=== PATIENT | male | born 1980 | race African-American/Black ===

== ENCOUNTER 2020-06-21 08:58 | Day surgery (SDC) | payer BC ==
[2020-06-18 09:15] LABS: Basophils # (auto) 0.1 10 ^3/uL (0-0.2); Basophils % (auto) 0.6 % (0.0-2.0); Eosinophils # (auto) 0.1 10 ^3/uL (0-0.8); Eosinophils % (auto) 1.2 % (0.0-7.0); Hematocrit 47.1 % (41.0-53.0); Hemoglobin 15.8 g/dL (13.5-17.5); Lymphocytes # (auto) 2.4 10 ^3/uL (0.4-5.4); Lymphocytes % (auto) 20.1 % (10.0-50.0); Mean Corpuscular Hemoglobin 30.1 pg (28.0-32.0); Mean Corpuscular Hgb Conc. 33.5 g/dL (32.0-36.0); Mean Corpuscular Volume 89.7 fL (80.0-100.0); Monocytes # (auto) 0.5 10 ^3/uL (0-1.3); Monocytes % (auto) 3.9 % (0.0-12.0); Neutrophils % (auto) 74.2 % (37.0-80.0); Red Blood Cells 5.25 10^6/uL (4.5-5.90); Red Cell Distribution Width 13.8 % (11.8-14.3); White Blood Cell 12.1 10^3/uL (4.4-10.8)
[2020-06-18 09:16] LABS: Urine Bacteria NONE SEEN /hpf (None Seen); Urine Blood Negative /uL (Negative); Urine Mucus FEW (None Seen); Urine Specific Gravity 1.031 (1.001-1.035); Urine WBC 2 /hpf (0 - 3)
[2020-06-18 09:31] LABS: INR 1.1 (0.9-1.15); Partial Thromboplastin Time 26.2 sec (23.0-31.2)
[2020-06-18 09:46] LABS: Potassium 3.4 mmol/L (3.5-5.1)
[2020-06-18 09:54] LABS: Albumin 3.9 g/dL (3.4-5.0); BUN/Creatinine Ratio 20.7; Calcium 8.7 mg/dL (8.5-10.1); Total Protein 7.7 g/dL (6.4-8.2)
[~2020-06-21] VITALS: Ht 182.9 cm; Wt 113.4 kg
[~2020-06-21 08:58] MED LIST: AMLO-496 PO; APIX5TAB PO; ATOR10TA52 PO; HYDR25TA4 PO; METO25TA93 PO; NAP500T PO
[2020-06-21] MEDS ORDERED: ceFAZolin 1GM/50ML 50 ML IV ONE (09:09)
[2020-06-21] MEDS ORDERED: METOCLOPRAMIDE HCL 5MG/ml INJ 2ml VIAL IV ONE (09:29)
[2020-06-21] MEDS ORDERED: LIDOCAINE 1%-Mpf/Epinephrine 1:200,000 ONE (09:30)
[2020-06-21] MEDS ORDERED: DexAMETHasone SOD PHOS 10MG/1ML VIAL INJ ONE (09:35)
[2020-06-21] MEDS ORDERED: PROPOFOL 10 MG/ML 20 ML IV ONE (09:35)
[2020-06-21] MEDS ORDERED: fentaNYL CITRATE 100 MCG/2 ML VL ONE (09:35)
[2020-06-21] MEDS ORDERED: MIDAZOLAM HCL 2MG/2ML 2ml VIAL (1mg/ml) ONE (09:35)
[2020-06-21] MEDS ORDERED: MEPERIDINE HCL (25 MG/ML) 1ML VIAL ONE (09:36)
[2020-06-21] MEDS ORDERED: ONDANSETRON HCL 4 MG/2 ML VIAL IV PRN (09:45)
[2020-06-21] MEDS ORDERED: LABETALOL HCL 5 MG/ML 4ML SYRINGE IV PRN (09:45)
[2020-06-21] MEDS ORDERED: ePHEDrine SULFATE 50 MG/ML AMP IV PRN (09:45)
[2020-06-21] MEDS ORDERED: MIDAZOLAM HCL 2MG/2ML 2ml VIAL (1mg/ml) IV PRN (09:45)
[2020-06-21] MEDS ORDERED: MORPHINE SULFATE 4 MG/ML SYR/VIAL IV PRN (09:45)
[2020-06-21] MEDS ORDERED: KETOROLAC TROMETH 30 MG/ML 1ML VIAL IV ONE (09:45)
[2020-06-21] MEDS ORDERED: HYDROmorphone HCL 2 MG/ML VL IV PRN (09:45)
[2020-06-21] MEDS ORDERED: NEOMYCIN-BACITRACIN-POLYM 15GM TOP OINT TOP ONE (10:10)
[2020-06-21 11:25] VITALS: BP 137/82
== END 2020-06-21 11:45 | disposition home or self-care (01) ==
LOC: SUR 08:58
PROVIDERS: ATTEND Urology
DX: N47.1 Phimosis (principal); I11.0 Hypertensive heart disease with heart failure; E11.9 Type 2 diabetes mellitus without complications; R00.0 Tachycardia, unspecified; I48.91 Unspecified atrial fibrillation; E66.01 Morbid (severe) obesity due to excess calories; I42.8 Other cardiomyopathies; D64.9 Anemia, unspecified; F17.200 Nicotine dependence, unspecified, uncomplicated; J44.9 Chronic obstructive pulmonary disease, unspecified; Z20.822 Contact with and (suspected) exposure to COVID-19; Z98.890 Other specified postprocedural states; Z79.899 Other long term (current) drug therapy; Z68.33 Body mass index [BMI] 33.0-33.9, adult
CPT/HCPCS: 36415; 54161; 80053; 81001; 82962; 85025; 85610; 85730; 87086; 88304; J0690; J1100; J2001; J2175; J2250; J2704; J2765; J3010; U0003